=== PATIENT | male | born 1975 | race Caucasian/White ===

== ENCOUNTER 2017-06-16 11:16 | Emergency (ER) | payer BC ==
--- NOTE | 2017-06-16 11:44 | Emergency Department Record ---
Anxiety - General Chief Complaint: Anxiety Stated Complaint: CAN'T SLEEP Time Seen by Provider: 06/16/17 11:30 Source: Patient Mode of Arrival: Ambulatory Limitations: No limitations - History of Present Illness Initial Comments: The patient is here due to feeling anxious and not being able to sleep for 3 days. He states he feels like his legs are moving at night and that they feel very restless and that is why he cannot sleep. The patient has a LONG hx of chronic back pain and normally takes 4-6 Vicodin 10's a day. He has been feeling much better with his back and decided to stop taking them 3 days ago also. He took 6 three days ago and then cut it down to 2 two days ago and since has gone cold turkey. The patient denies any new weakness, numbness, or any difficulty walking. He has a chronic L foot drop but that is not new. MD Complaint: Anxiety Onset/Timin -: Days(s) Symptoms: Extremity numbness/tingling Place: Home Previous History of Same: Yes Severity: Moderate Quality: Constant, Intermittant - Related Data Home Medications: Home Medications Medication Instructions Recorded Confirmed Last Taken Bupropion HCl [Wellbutrin Xl] 300 mg PO DAILY 06/16/17 06/16/17 1 Day Ago ~06/15/17 Citalopram Hydrobromide [Celexa] 40 mg PO DAILY 06/16/17 06/16/17 1 Day Ago ~06/15/17 Hydrocodone/Acetaminophen [[place] 1 each PO QID PRN 06/16/17 06/16/17 1 Day Ago 10-325 Tablet] ~06/15/17 Ibuprofen 800 mg PO TID PRN 06/16/17 06/16/17 1 Day Ago ~06/15/17 Multivitamin [Multiple Vitamins] 1 each PO DAILY 06/16/17 06/16/17 1 Day Ago ~06/15/17 Allergies/Adverse Reactions: Allergies Allergy/AdvReac Type Severity Reaction Status Date / Time No Known Drug Allergies Allergy Verified 06/16/17 11:29 Travel Screening - Travel/Exposure Within Last 30 Days Have you traveled within the last 30 days?: No - Travel/Exposure Within Last Year Have you traveled outside the [place] in the last year?: No - Additonal Travel Details Have you been exposed to anyone with a communicable illness?: No - Travel Symptoms Symptom Screening: None Review of Systems Constitutional: Denies: Chills, Fever Eyes: Denies: Eye discharge ENT: Denies: Congestion Respiratory: Denies: Cough, Dyspnea Cardiovascular: Denies: Chest pain Past Medical History - SOCIAL HISTORY Smoking Status: Never smoker Alcohol Use: None Drug Use: None - RESPIRATORY Hx Sleep Apnea: Yes Comment:: seasonal allergies - CARDIOVASCULAR Hx Hypertension: Yes (with PCP visits no treatment) - NEURO Comment:: left drop foot with brace - GI Hx GI Disorders: No - Hx Genitourinary Disorders: No - ENDOCRINE Hx Diabetes: No Hx Thyroid Disease: No - PSYCH Hx Anxiety: Yes (mild) Hx Depression: No - HEMATOLOGY/ONCOLOGY Hx Hematology/Oncology Disorders: No Hx Cancer: Yes (melanoma 2015) Family Medical History Any Significant Family History?: Yes Physical Exam - General General Appearance: Alert, Oriented x3, Cooperative, No acute distress - Head Head exam: Atraumatic, Normocephalic, Normal inspection - Eye Eye exam: Normal appearance, PERRL - ENT Throat exam: Normal inspection. negative: Tonsillar erythema, Tonsillar exudate - Neck Neck exam: Normal inspection, Full ROM. negative: Tenderness - Respiratory Respiratory exam: Normal lung sounds bilaterally. negative: Respiratory distress - Cardiovascular Cardiovascular Exam: Regular rate, Normal rhythm, Normal heart sounds - GI/Abdominal GI/Abdominal exam: Soft, Normal bowel sounds. negative: Tenderness - Extremities Extremities exam: Normal inspection, Full ROM, Normal capillary refill. negative: Tenderness - Back Back exam: Reports: Normal inspection, Other (Neg SLR bilaterally.). Denies: Paraspinal tenderness, Vertebral tenderness - Neurological Neurological exam: Alert, Normal gait. negative: Abnormal gait, Motor sensory deficit Course Vital Signs 06/16/17 11:21 Temperature 98.3 F Pulse Rate 107 H Respiratory 18 Rate Blood Pressure 162/117 Pulse Ox 95 - Reevaluation(s) Reevaluation #1: The patient is doing very well at this time. I did explain to him the main issue could be the fact he stopped his chronic narcotic usage basically . He states he will be able to get the new prescription today and I did explain to him the need to wean off it slowly over a month or two. His BP is much improved and he is to see his PCP also to get that rechecked. 06/16/17 12:03 Disposition Disposition: Discharge Clinical Impression: Anxiety Disposition: Home, Self-Care Condition: (2) Stable Instructions: Insomnia (ED) Additional Instructions: Please take the Xanax as directed and restart your Vicodin. Please see your PCP later this week or early next week for recheck and to have your blood pressure rechecked. Return to the ER for any worsening issues or problems. Forms: Patient Portal Access Time of Disposition: 12:03 Quality - Quality Measures Quality Measures: N/A - Blood Pressure Screening View Details: Yes Does Patient Have Any of the Following: No Blood Pressure Classification: Hypertensive Reading Systolic Measurement: 162 Diastolic Measurement: 117 Screening for High Blood Pressure: < First Hypertensive BP, F/U Documented > [ G8950] First Hypertensive Follow-up Interventions: Referral to alternative/primary care provider.
[2017-06-16] MEDS ORDERED: ALPRAZOLAM 0.25 MG TABLET PO ONE (12:00)
== END 2017-06-16 12:09 | disposition home or self-care (01) ==
LOC: ER 11:16
DX: F41.9 Anxiety disorder, unspecified (principal); R20.0 Anesthesia of skin; I10 Essential (primary) hypertension
CPT/HCPCS: 99282

== ENCOUNTER 2017-07-10 09:31 | Emergency (ER) | payer BC, OTHER ==
[2017-07-10 10:45] LABS: BASO % 0.1 % (0-6); EOS % 1.3 % (0-6); HEMATOCRIT 49.6 % (42.0-52.0); HEMOGLOBIN 17.8 gm/dl (14.0-18.0); LYMPH % 30.1 % (16-45); MEAN CELL VOLUME 88.3 fl (81-97); MEAN CORPUSCULAR HEMOGLOBIN 31.7 pg (27-33); MEAN CORPUSCULAR HGB CONC 35.9 g/dl (32-36); MEAN PLATELET VOLUME 9.6 fl (7.4-10.4); MONO % 8.5 % (0-9); PLATELET COUNT 286 K/uL (130-400); RED BLOOD COUNT 5.62 M/uL (4.40-5.70); RED CELL DISTRIBUTION WIDTH 13.8 % (11.5-14.5)
[2017-07-10 11:13] LABS: ALB/GLOB RATIO 1.7 (1.1-1.8); ALBUMIN 4.8 g/dL (4.0-5.0); ALKALINE PHOSPHATASE 63 U/L (40-129); ALT/SGPT 35 U/L (<41); AST/SGOT 29 U/L (10.0-50.0); BLOOD UREA NITROGEN 8 mg/dL (6-20); CREATININE 0.9 mg/dL (0.7-1.2); EST GLOMERULAR FILTRATION RATE > 60 mL/min; GLUCOSE,RANDOM 105 mg/dL (74-109); TOTAL PROTEIN 7.6 g/dL (6.6-8.7)
[2017-07-10] MEDS ORDERED: BACIT/NEOM/POLY OINT TOP SCH ×2 (11:15→22:00)
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
== END 2017-07-10 11:49 | disposition home or self-care (01) ==
LOC: ER 09:31
DX: T22.612A Corrosion of second degree of left forearm, initial encounter (principal); T24.622A Corrosion of second degree of left knee, initial encounter; T65.891A Toxic effect of other specified substances, accidental (unintentional), initial encounter; Y92.63 Factory as the place of occurrence of the external cause; Y99.0 Civilian activity done for income or pay
CPT/HCPCS: 80053; 85025; 99283

== ENCOUNTER 2017-07-11 07:12 | Emergency (ER) | payer SELFPAY ==
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
== END 2017-07-11 07:38 | disposition home or self-care (01) ==
LOC: ER 07:12
DX: T22.612A Corrosion of second degree of left forearm, initial encounter (principal); T24.622A Corrosion of second degree of left knee, initial encounter; T65.891A Toxic effect of other specified substances, accidental (unintentional), initial encounter; Y92.63 Factory as the place of occurrence of the external cause; Y99.0 Civilian activity done for income or pay
CPT/HCPCS: 99282

== ENCOUNTER 2018-02-14 06:55 | Emergency (ER) | payer BC, OTHER ==
[2018-02-14] MEDS ORDERED: CLINDAMYCIN 150 MG CAP PO ONE (07:11)
--- NOTE | 2018-02-14 07:34 | Emergency Department Record ---
History of Present Illness - General Chief complaint: Abscess Stated complaint: LUMP UNDER ARMPIT Time Seen by Provider: 02/14/18 07:04 Source: Patient Mode of Arrival: Ambulatory Limitations: No limitations - History of Present Illness Initial comments: The patient has had swelling and pain at the L armpit for 2-3 days. He has had a previous infected cyst there in the past. There has been no fever or chills. MD complaint: Abscess/boil Onset/Timin -: Days(s) Improves with: None Worsens with: None Associated symptoms: Denies other symptoms Treatments Prior to Arrival: None - Related Data Previous Rx's Medication Instructions Recorded Clindamycin HCl [Cleocin HCl] 300 mg PO QID #28 capsule 02/14/18 Allergies Allergy/AdvReac Type Severity Reaction Status Date / Time No Known Drug Allergies Allergy Verified 07/11/17 07:15 Travel Screening - Travel/Exposure Within Last 30 Days Have you traveled within the last 30 days?: No - Travel/Exposure Within Last Year Have you traveled outside the [place] in the last year?: No - Additonal Travel Details Have you been exposed to anyone with a communicable illness?: No - Travel Symptoms Symptom Screening: None Review of Systems Constitutional: Denies: Chills, Fever Past Medical History - SOCIAL HISTORY Smoking Status: Never smoker Alcohol Use: Rare Drug Use: None - RESPIRATORY Hx Respiratory Disorders: Yes Hx Sleep Apnea: Yes Comment:: seasonal allergies - CARDIOVASCULAR Hx Cardio Disorders: Yes Hx Hypertension: Yes (with PCP visits no treatment) - NEURO Hx Neuro Disorders: No Comment:: left drop foot with brace - GI Hx GI Disorders: No - Hx Genitourinary Disorders: No - ENDOCRINE Hx Diabetes: No Hx Thyroid Disease: No - PSYCH Hx Anxiety: Yes (mild) Hx Depression: No - HEMATOLOGY/ONCOLOGY Hx Hematology/Oncology Disorders: No Hx Cancer: Yes (melanoma 2015) Family Medical History Any Significant Family History?: No Physical Exam - General General Appearance: Alert, Oriented x3, Cooperative, No acute distress - Head Head exam: Atraumatic, Normocephalic, Normal inspection - Eye Eye exam: Normal appearance, PERRL - Extremities Extremities exam: negative: Normal inspection (There is an infected cyst measuring 2x2 cm at the L superior axilla area with significant tenderness and warmth. There is mild surrounding erythema and tenderness.) - Neurological Neurological exam: Alert, Normal gait, Other (The L arm is NVI distally. ). negative: Abnormal gait - Skin Type of lesion: Abscess Course Vital Signs 02/14/18 07:02 Temperature 98.4 F Pulse Rate [ 77 Pulse Ox Probe] Respiratory 20 Rate Blood Pressure 141/87 [Left Arm] Pulse Ox 97 - Reevaluation(s) Reevaluation #1: Procedure note: The L axilla cyst was prepped with betadine and anesth. with 5 cc's [place] 1%. The center of the abscess was incised with a # 11 blade. A moderate amount of infected sebum was removed. The abscess was then packed with iodoform gauze. There were no complications. 02/14/18 07:38 Disposition Disposition: Discharge Clinical Impression: Axillary abscess Disposition: Home, Self-Care Condition: (2) Stable Instructions: Abscess Incision and Drainage (ED) Additional Instructions: Please keep dry and return tomorrow for recheck. Please take the Clindamycin as directed. Please see Dr. Moses in the Specialty clinic next week. Prescriptions: Clindamycin HCl [Cleocin HCl] 300 mg PO QID #28 capsule Referrals: [facility] [Provider Group] Forms: Patient Portal Access Time of Disposition: 07:33 Quality - Quality Measures Quality Measures: N/A - Blood Pressure Screening View Details: Yes Does Patient Have Any of the Following: No Blood Pressure Classification: Hypertensive Reading Systolic Measurement: 147 Diastolic Measurement: 92 Screening for High Blood Pressure: < First Hypertensive BP, F/U Documented > [ G8950] First Hypertensive Follow-up Interventions: Referral to alternative/primary care provider.
== END 2018-02-14 07:46 | disposition home or self-care (01) ==
LOC: ER 06:55
DX: L02.412 Cutaneous abscess of left axilla (principal); I10 Essential (primary) hypertension
CPT/HCPCS: 10060; 99284

== ENCOUNTER 2018-02-15 13:52 | Emergency (ER) | payer BC ==
--- NOTE | 2018-02-15 14:07 | Emergency Department Record ---
History of Present Illness - General Chief Complaint: Wound, check Stated Complaint: WOUND RECHECK Time Seen by Provider: 02/15/18 14:01 Source: Patient Mode of arrival: Ambulatory Limitations: No limitations - History of Present Illness Initial Comments: The patient was seen yesterday for a L axilla abscess which was I and D'd. He is now here for recheck. He states the arm and axilla feel MUCH better. There has been no fever or chills. Complaint: Wound re-check Onset/Timin -: Days(s) Initial Visit For: Abscess Returns Today for: Wound recheck - Related Data Previous Rx's Medication Instructions Recorded Clindamycin HCl [Cleocin HCl] 300 mg PO QID #28 capsule 02/14/18 Allergies Allergy/AdvReac Type Severity Reaction Status Date / Time No Known Drug Allergies Allergy Verified 07/11/17 07:15 Travel Screening - Travel/Exposure Within Last 30 Days Have you traveled within the last 30 days?: No - Travel/Exposure Within Last Year Have you traveled outside the [place] in the last year?: No - Additonal Travel Details Have you been exposed to anyone with a communicable illness?: No - Travel Symptoms Symptom Screening: None Review of Systems Constitutional: Denies: Chills, Fever Past Medical History - SOCIAL HISTORY Smoking Status: Never smoker Alcohol Use: None Drug Use: None - RESPIRATORY Hx Respiratory Disorders: Yes Hx Sleep Apnea: Yes Comment:: seasonal allergies - CARDIOVASCULAR Hx Cardio Disorders: Yes Hx Hypertension: Yes (with PCP visits no treatment) - NEURO Hx Neuro Disorders: No Comment:: left drop foot with brace - GI Hx GI Disorders: No - Hx Genitourinary Disorders: No - ENDOCRINE Hx Diabetes: No Hx Thyroid Disease: No - PSYCH Hx Anxiety: Yes (mild) Hx Depression: No - HEMATOLOGY/ONCOLOGY Hx Hematology/Oncology Disorders: No Hx Cancer: Yes (melanoma 2015) Family Medical History Any Significant Family History?: No Physical Exam - General General Appearance: Alert, Cooperative, No acute distress - Head Head exam: Atraumatic, Normocephalic - Eye Eye exam: Normal appearance - Extremities Extremities exam: Tenderness. negative: Normal inspection (The L axilla abscess is much less tender. The packing was removed without difficulty. There is no tenderness to the surrounding arm. The erythema that was present over the medial L arm distal to the axilla has resolved.), Joint swelling Course Vital Signs 02/15/18 13:53 Temperature 98.5 F Pulse Rate 102 H Respiratory 20 Rate Blood Pressure 147/101 Pulse Ox 94 L - Reevaluation(s) Reevaluation #1: I did remove the packing and discuss the plan with the patient. He is to wash the area daily and see Dr. Moses next week as planned. 02/15/18 14:09 Disposition Disposition: Discharge Clinical Impression: Axillary abscess Disposition: Home, Self-Care Condition: (2) Stable Instructions: Wound Infection (ED) Additional Instructions: Please continue the oral antibiotics and keep the area dressed with a bandage due to the drainage. Please see Dr. Moses [facility] next week as planned. Return to the ER for any worsening symptoms. Forms: Patient Portal Access Time of Disposition: 14:07 Quality - Quality Measures Quality Measures: N/A - Blood Pressure Screening View Details: Yes Does Patient Have Any of the Following: Active Dx of HTN Blood Pressure Classification: Hypertensive Reading Systolic Measurement: 147 Diastolic Measurement: 101 Screening for High Blood Pressure: Patient Exclusion, Hx of HTN [[id number]]
== END 2018-02-15 14:14 | disposition home or self-care (01) ==
LOC: ER 13:52
DX: L02.412 Cutaneous abscess of left axilla (principal)
CPT/HCPCS: 99282